=== PATIENT | female | born 1985 | race Caucasian/White ===

== ENCOUNTER 2022-08-24 14:50 | Emergency (ER) | payer OTHER ==
[~2022-08-24] VITALS: Ht 165.1 cm; Wt 52.6 kg
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
--- NOTE | 2022-08-24 15:28 | NUR ---
Mary bruce in [facility] - 08/24/22 at 1543 by YADY CALLED FOR PHILLIP NO RESPONSE
--- NOTE | 2022-08-24 15:43 | NUR ---
URINE COLLECTED AND SENT
[2022-08-24] MEDS ORDERED: IBUPROFEN 600 MG TABLET PO ONE (16:00)
[2022-08-24] MEDS ORDERED: IBUPROFEN 600 MG TABLET ONE (16:10)
--- NOTE | 2022-08-24 16:17 | NUR ---
pt refused to take pain medication motrin.
--- NOTE | 2022-08-24 16:42 | NUR ---
CALLED RADIOLOGY TO VISUAL COORDINATOR PT FOR CT
--- NOTE | 2022-08-24 16:54 | NUR ---
PT RETURNED FROM CT VIA [facility]
[2022-08-24] MEDS ORDERED: KETOROLAC TROMETHAMINE INJ 60 MG/2 ML VIAL IM ONE (17:00)
[2022-08-24] MEDS ORDERED: KETOROLAC TROMETHAMINE INJ 30 MG/ML VIAL ONE (17:04)
[2022-08-24 17:39] VITALS: BP 130/82
[2022-08-24] MEDS ORDERED: METH-647 PO (17:40)
[2022-08-24] MEDS ORDERED: IBUP-1953 PO (17:40)
--- NOTE | 2022-08-24 18:00 | NUR ---
Patient discharged to home in stable condition. Written and verbal after care instructions given. Patient verbalizes understanding of instruction.
== END 2022-08-24 18:00 | disposition home or self-care (01) ==
LOC: ER 14:50
DX: S13.4XXA Sprain of ligaments of cervical spine, initial encounter (principal); Z88.0 Allergy status to penicillin; V49.59XA Passenger injured in collision with other motor vehicles in traffic accident, initial encounter; Y93.89 Activity, other specified; Y92.413 State road as the place of occurrence of the external cause; Y99.8 Other external cause status
CPT/HCPCS: 99285; 72125; 71045; 96372; 84703; J1885